=== PATIENT | female | born 1970 | race Caucasian/White ===

== ENCOUNTER 2020-07-04 12:13 | Emergency (ER) | payer OTHER ==
[2020-07-04 12:21] VITALS: BP 121/70; PULSE 87; RESP 20; TEMP 98.9
[2020-07-04] MEDS ORDERED: predniSONE 20 MG TAB PO STA (13:05)
[2020-07-04] MEDS ORDERED: KETOROLAC 15 MG/ML 1 ML VIAL IM STA (13:05)
[2020-07-04] MEDS ORDERED: LIDOCAINE 5% PATCH TOPICAL STA (13:05)
--- NOTE | 2020-07-04 13:14 | ED ---
Back Pain HPI - General Chief Complaint: Back Pain/Injury Stated Complaint: Sciatica Time Seen by Provider: 07/04/20 12:15 Source: patient Limitations: no limitations - History of Present Illness Initial Comments: Patient is a 50 year old female with no past medical history of present to emergency room with reported back pain. Patient states that yesterday she began having right-sided back pain which radiates into her right leg. She reports she is concerned for sciatica however no has no history of this. Denies any inciting trauma. No weakness in the lower extremity. As admit to some numbness which is located on the lateral aspect of the thigh. Denies any saddle anesthesia. No bowel or bladder incontinence. Denies any fevers. No history of intravenous drug use. Patient has been taking NSAIDs at home with some improvement in her symptoms. Denies any abdominal pain. No concern for . No previous history of cancer. No other alleviating, precipitating or modifying factors - Related Data Previous Rx's Medication Instructions Recorded Hydrocodone/Acetaminophen [[place] 1 tab PO Q6HR PRN #12 tab 07/04/20 5-325] Lidocaine 5% Patch [Lidoderm 5% 1 patch TOPICAL DAILY #25 patch 07/04/20 Patch] predniSONE [Deltasone] 20 mg PO BID #10 tab 07/04/20 Allergies Allergy/AdvReac Type Severity Reaction Status Date / Time No Known Allergies Allergy Verified 07/04/20 12:21 Review of Systems ROS Statement: Those systems with pertinent positive or pertinent negative responses have been documented in the HPI. ROS Other: All systems not noted in ROS Statement are negative. Past Medical History Past Medical History: No Reported History History of Any Multi-Drug Resistant Organisms: None Reported Past Surgical History: Hernia Repair Additional Past Surgical History / Comment(s): ASD repair Past Psychological History: No Psychological Hx Reported Smoking Status: Never smoker Past Alcohol Use History: None Reported Past Drug Use History: None Reported General Exam Limitations: no limitations General appearance: alert, in no apparent distress Respiratory exam: Present: normal lung sounds bilaterally. Absent: respiratory distress, wheezes, rales, rhonchi, stridor Cardiovascular Exam: Present: regular rate, normal rhythm, normal heart sounds. Absent: systolic murmur, diastolic murmur, rubs, gallop, clicks Back exam: Present: paraspinal tenderness, other (tenderness to palpation right SI joint. 5/5 muscle strength b/l le. intact sensation over the medial, lateral and dorsal b/l le. 2+ DP and PT pulses. ) Neurological exam: Present: alert, oriented X3, CN II-XII intact Course Vital Signs 07/04/20 12:15 Temperature 98.9 F Pulse Rate 87 Respiratory 20 Rate Blood Pressure 121/70 O2 Sat by Pulse 100 Oximetry Medical Decision Making - Medical Decision Making Upon arrival patient is placed into room 33. A thorough history and physical exam was performed. No focal neurologic deficits. No red flag symptoms. Treatments are discussed with the patient. Patient was given a dose of Toradol and a Lidoderm patch the emergency department. She was also given a dose of prednisone. Patient is instructed to not take NSAIDs while she is on the steroids. She'll be given a 5 day course. Lidoderm patches and [place] are also ascribes. Side effect profile is discussed. The patient is informed not to work or drive while taking the [place]. She understands this. Follow up with her primary care doctor. If symptoms persist you may need an MRI. Return to the emergency room for any new or worsening symptoms as per patient discharged in stable condition Disposition Clinical Impression: Back pain, Lumbar radiculopathy Disposition: HOME SELF-CARE Condition: Stable Instructions (If sedation given, give patient instructions): Acute Low Back Pain (ED) Additional Instructions: Please take the medications as directed. Follow up with your primary care physician. If your pain persists, you may need an MRI. Return to the emergency room for new or worsening symptoms Prescriptions: predniSONE [Deltasone] 20 mg PO BID #10 tab Lidocaine 5% Patch [Lidoderm 5% Patch] 1 patch TOPICAL DAILY #25 patch Hydrocodone/Acetaminophen [[place] 5-325] 1 tab PO Q6HR PRN #12 tab PRN Reason: Pain Is patient prescribed a controlled substance at d/c from ED?: Yes When asked, does pt state using other controlled substances?: No If prescribed controlled substance>3 days was MAPS reviewed?: Prescribed <3 Days If opioid is for acute pain is fill amount 7 days or less?: Yes If Rx opioid, was Start Talking consent form obtained?: Yes Referrals: Erasmo Garrett DO [Primary Care Provider] - 1-2 days Time of Disposition: 13:14
== END 2020-07-04 13:23 | disposition home or self-care (01) ==
LOC: EC 12:13
DX: M54.16 Radiculopathy, lumbar region (principal)
CPT/HCPCS: 96372; 99283